=== PATIENT | male | born 1980 | race Caucasian/White ===

== ENCOUNTER 2020-06-15 09:57 | Emergency (ER) | payer MEDICAID, OTHER ==
--- NOTE | 2020-06-15 10:58 | EDM.PDOC ---
ED HPI GENERAL MEDICAL PROBLEM - General Stated Complaint: LEFT TOOTH PAIN Time Seen by Provider: 06/15/20 10:30 Source of Information: Reports: Patient History Limitations: Reports: No Limitations - History of Present Illness INITIAL COMMENTS - FREE TEXT/NARRATIVE: c/o tooth pain x 3-4d last saw dentist 4y ago in [place] pain at L lower molar x 3-4d, inc'd x 2d, took ibuprofen 8 tabs yesterday total over course of day, took 5 tabs at 6a this morning when he got up to work works at [employer] 40 hr/wk, left work early today to come to ED he plans on calling a local dentist in 2d on Wednesday - Related Data Allergies Allergy/AdvReac Type Severity Reaction Status Date / Time No Known Allergies Allergy Verified 06/15/20 10:09 Home Meds: Home Meds Amoxicillin 500 mg PO TID #30 tablet 06/15/20 [Rx] Ibuprofen 1 mg PO Q4H PRN 06/15/20 [History] Lidocaine 2% [Xylocaine 2% Viscous] 0.5 ml PO ASDIRECTED PRN #30 cup 06/15/20 [Rx] ED ROS ENT - Review of Systems Review Of Systems: See Below Constitutional: Reports: No Symptoms HEENT: Reports: Dental Pain Respiratory: Reports: No Symptoms Endocrine: Reports: No Symptoms GI/Abdominal: Reports: No Symptoms : Reports: No Symptoms Musculoskeletal: Reports: No Symptoms Skin: Reports: No Symptoms Neurological: Reports: No Symptoms Psychiatric: Reports: No Symptoms Hematologic/Lymphatic: Reports: No Symptoms Immunologic: Reports: No Symptoms ED EXAM, ENT - Physical Exam Exam: See Below Exam Limited By: No Limitations General Appearance: Alert, WD/WN, No Apparent Distress, Other (alert pleasant) Eye Exam: Bilateral Eye: EOMI, PERRL Ears: Hearing Grossly Normal Nose: Normal Inspection Mouth/Throat: Other (poor dentition, tooth #19 is eroded to gingiva, no red/swell gingiva, mandible NT external, no cheek swell, no LNs) Head: Atraumatic, Normocephalic Neck: Normal Inspection, Supple, Non-Tender, Full Range of Motion. No: Lymphadenopathy (R), Lymphadenopathy (L) Respiratory/Chest: No Respiratory Distress Cardiovascular: Regular Rate, Rhythm Back: Normal Inspection, Full Range of Motion Extremities: Normal Range of Motion, Non-Tender, No Pedal Edema Neurological: Alert, Oriented, CN II-XII Intact, Normal Cognition, No Motor/Sensory Deficits Psychiatric: Normal Affect, Normal Mood Skin: Warm, Dry, Intact, Normal Color, No Rash Lymphatic: No Adenopathy Course - Re-Assessments/Exams Free Text/Narrative Re-Assessment/Exam: 06/15/20 11:06 should respond well to meds, no seen in ED before, MPMP neg, pt understands instructions Departure - Departure Time of Disposition: 10:52 Disposition: Home, Self-Care 01 Condition: Good Clinical Impression: Dental abscess, Dental caries into pulp - Discharge Information *PRESCRIPTION DRUG MONITORING PROGRAM REVIEWED*: Yes *COPY OF PRESCRIPTION DRUG MONITORING REPORT IN PATIENT NETTIE: No Prescriptions: Amoxicillin 500 mg PO TID #30 tablet Lidocaine 2% [Xylocaine 2% Viscous] 0.5 ml PO ASDIRECTED PRN #30 cup PRN Reason: Pain Instructions: Dental Abscess Referrals: Navid Garcia MD [Primary Care Provider] - Forms: ED Return to Work/School Form Additional Instructions: For infection, take amoxicillin 500 mg 1 tab 3 times a day for 10 days. For pain, take ibuprofen 200 mg 3 tabs and acetaminophen 500 mg 2 tabs 4 times a day for 2 days, longer if needed. For pain, put a thin layer of 2% viscous lidocaine on a cotton ball and bite down every hour as needed. Use ice for 5-10 minutes every hour as needed. Drink cold liquids. Eat cool, soft food. Avoid chewing on the left side. See a dentist in one week.
== END 2020-06-15 11:15 | disposition home or self-care (01) ==
LOC: FB.ED 09:57
DX: K04.7 Periapical abscess without sinus (principal); K02.9 Dental caries, unspecified
CPT/HCPCS: 99282; 99283

== ENCOUNTER 2020-08-14 20:35 | Emergency (ER) | payer MEDICAID ==
--- NOTE | 2020-08-14 21:26 | EDM.PDOC ---
ED HPI GENERAL MEDICAL PROBLEM - General Chief Complaint: General Stated Complaint: MOUTH INFECTIONS Time Seen by Provider: 08/14/20 21:22 Source of Information: Reports: Patient History Limitations: Reports: No Limitations - History of Present Illness INITIAL COMMENTS - FREE TEXT/NARRATIVE: Travis complains of fatigue,excessive sleeping and dental pain. His is worried suman the has a blood infection from the dental seeding. I did see him a couple days ago and started him in Clindamycin for dental abscess.He has no headache,myalgias,fever or respiratory symptoms L lower jaw Pain Score (Numeric/FACES): 6 - Related Data Allergies Allergy/AdvReac Type Severity Reaction Status Date / Time No Known Allergies Allergy Verified 08/14/20 20:56 Home Meds: Home Meds Ibuprofen 400 mg PO Q6H PRN 06/15/20 [History] Lidocaine 2% [Xylocaine 2% Viscous] 0.5 ml PO ASDIRECTED PRN #30 cup 06/15/20 [Rx] Clindamycin HCl 300 mg PO TID 08/14/20 [History] Terbinafine [LamISIL] 250 mg PO DAILY 08/14/20 [History] Past Medical History HEENT History: Reports: Other (See Below) Other HEENT History: poor dentition Neurological History: Reports: Seizure Other Neuro History: 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 ED EXAM, GENERAL - Physical Exam Exam: See Below Exam Limited By: No Limitations General Appearance: Alert, WD/WN Ears: Normal External Exam Ear Exam: Bilateral Ear: Auricle Normal, Canal Normal, TM normal Nose: Normal Inspection Throat/Mouth: Normal Inspection Head: Atraumatic Neck: Normal Inspection Respiratory/Chest: No Respiratory Distress Cardiovascular: Normal Peripheral Pulses, Regular Rate, Rhythm Course - Vital Signs Last Recorded V/S: Last Vital Signs Temp 97.6 F 08/14/20 20:58 Pulse 79 08/14/20 20:58 Resp 18 08/14/20 20:58 BP 142/98 H 08/14/20 20:58 Pulse Ox 100 08/14/20 20:58 - Orders/Labs/Meds Labs: Laboratory Tests 08/14/20 08/14/20 Range/Units 21:40 21:40 WBC 7.1 (3.2-10.1) x10-3/uL RBC 4.89 (3.90-5.90) x10(6)uL Hgb 15.0 (12.9-17.7) g/dL Hct 43.6 (38.3-50.1) % MCV 89.1 (80.8-98.7) fL MCH 30.8 (27.0-33.3) pg MCHC 34.5 (28.7-35.3) g/dL RDW 13.3 (12.4-15.0) % Plt Count 235 (117-477) x10(3)uL MPV 8.1 (6.7-11.0) fL Neut % (Auto) 49.1 (40.3-71.8) % Lymph % (Auto) 40.9 (15.8-45.3) % [place] % (Auto) 7.8 (5.5-15.2) % Eos % (Auto) 1.9 (0.1-6.8) % Baso % (Auto) 0.3 (0.3-3.8) % Neut # (Auto) 3.5 (1.7-6.9) x10-3/uL Lymph # (Auto) 2.9 (0.5-4.5) x10-3/uL [place] # (Auto) 0.6 (0.0-1.2) x10-3/uL Eos # (Auto) 0.1 (0.0-0.6) x10-3/uL Baso # (Auto) 0.0 (0.0-0.3) x10-3/uL Sodium 138 (135-145) mmol/L Potassium 4.2 (3.5-5.3) mmol/L Chloride 101 (100-110) mmol/L Carbon Dioxide 23 (21-32) mmol/L BUN 16 (7-18) mg/dL Creatinine 1.0 (0.70-1.30) mg/dL Est Cr Clr Drug Dosing 100.16 mL/min Estimated GFR (MDRD) > 60 (>60) BUN/Creatinine Ratio 16.0 (9-20) Glucose 104 (80-116) mg/dL Calcium 8.8 (8.6-10.2) mg/dL Departure - Departure Time of Disposition: 22:27 Disposition: Home, Self-Care 01 Condition: Good Clinical Impression: Dental abscess - Discharge Information Referrals: Navid Garcia MD [Primary Care Provider] - Forms: ED Department Discharge Sepsis Event Note (ED) - Evaluation Sepsis Screening Result: No Definite Risk - Focused Exam Vital Signs: Vital Signs Temp Pulse Resp BP Pulse Ox 08/14/20 20:58 97.6 F 79 18 142/98 H 100 - Problem List & Annotations (1) Fatigue SNOMED Code(s): 36038055 Code(s): R53.83 - OTHER FATIGUE Status: Acute Current Visit: Yes Qualifiers: Fatigue type: unspecified Qualified Code(s): R53.83 - Other fatigue (2) Dental abscess SNOMED Code(s): 851773393 Code(s): K04.7 - PERIAPICAL ABSCESS WITHOUT SINUS Status: Acute Current Visit: No - Problem List Review Problem List Initiated/Reviewed/Updated: Yes - Assessment/Plan Plan: CBC and BMP within normal limits. Vital sing normal. DC home.Has dental appointment on 08/21/2020
== END 2020-08-14 22:00 | disposition home or self-care (01) ==
LOC: FB.ED 20:35
DX: K04.7 Periapical abscess without sinus (principal); E66.9 Obesity, unspecified; Z68.31 Body mass index [BMI] 31.0-31.9, adult; Z72.0 Tobacco use
CPT/HCPCS: 36415; 80048; 85025; 99283

== ENCOUNTER 2021-03-16 15:30 | Emergency (ER) | payer MEDICAID ==
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
== END 2021-03-16 17:45 | disposition home or self-care (01) ==
LOC: FB.ED 15:30
DX: R25.2 Cramp and spasm (principal); L30.9 Dermatitis, unspecified; E66.9 Obesity, unspecified; Z68.30 Body mass index [BMI] 30.0-30.9, adult
CPT/HCPCS: 36415; 80048; 85025; 99283